=== PATIENT | male | born 1995 | race Caucasian/White ===

== ENCOUNTER 2021-10-04 12:53 | Outpatient (CLI) | payer OTHER ==
[2021-10-04 14:24] VITALS: BP 118/73
--- NOTE | 2021-10-04 14:24 | SLEEP CARE CONSULTATION ---
Information from patient questionnaire entered by Leslie Liang MA. I have reviewed and concur with the information entered by Leslie Liang MA. This document represents the service I personally performed and the decisions made by me, Alexys Aleman MD, [facility]. History of Present Illness Service Date and Time: 10/04/2021 1253 Reason for Visit: New patient (ONSET 09/2020, NO PRIORS,) Chief Complaint: reports: Snoring, Observed pauses in breathing Date of Onset: YEAR Usual bedtime: 2129 Time it takes to fall asleep: 15 MINUTES Snores at night: Yes Observed to quit breathing while asleep: Yes Sleeps alone due to snoring: No Number of times waking at night: 2-3 Reasons for waking at night: reports: Snoring, Gasping for air Toss, Turn, or Twitch while sleeping: Yes Recalls having dreams: Yes Usually gets out of bed at: 0500 Feels refreshed in the morning: No Morning headache: No Sleepy or fatigued during the day: Yes Ever fallen asleep while driving: No Takes day naps: No Dreams during day naps: No Prior sleep studies: No Additional HPI information: I had the pleasure of seeing Mr. So today regarding the possibility of him having a sleep disorder. As you know, he is a 26-year-old gentleman who complains of loud snore and observed apneas for about a year after gaining 30 lbs. The patient tells me that he normally goes to bed around 9:30 pm, and it takes him approximately 15 minutes to fall asleep. His girlfriend sleeps in the same bed. He can recall waking up on the average of 2 - 3 times during the night. Most of the time he wakes up because of his own snoring, choking, and having to gasp for air. There is a lot of tossing and turning in his sleep. He has somniloquy (sleep talking) but not somnambulism (sleep walking). Generally, he can recall having dreams. In the morning he usually gets up out of the bed around 5 a.m. not feeling refreshed nor rested. He usually does not have a morning headache. During the day he complains of feeling sleepy and fatigued. His score on [place] Sleepiness Scale is 10 out of 24. He never has fallen asleep while driving nor has had any accident due to sleepiness. He usu ally does not take naps during the day. Upon falling asleep during the day he denies having vivid dreams. He has had sleep paralysis, experienced cataplexy or symptoms of restless leg syndrome. He reports having impaired concentration during the day. - Parasomnia Symptoms Ever been unable to move upon waking from sleep: Yes Walks in sleep: No Talks in sleep: Yes Ever acted out dreams in sleep: No Ever felt weak in the knees when startled or emotional: No Bothered by creepy, crawly, restless sensations in legs: No Problems with memory or concentration: Yes Subjective Initial [place] Sleepiness Scale score: 10 (2021) Past Medical History Past Medical History: reports: Other (s/p tonsillectomy) Social History The patient's occupation is a [employer]. Patient is Single and lives in . Have you smoked in the past 12 months: No Alcohol use: Yes Alcohol amount and frequency: 1-2 X MONTHLY Caffeine use: Yes Caffeine amount and frequency: 2-3 X WEEKLY Family History Family history of sleep disordered breathing: No Family Hx Sleep Apnea: Father: Snoring, Grandparent: Sleep apnea - Treated Allergies and Home Medications Known drug allergies: Yes (AMOX, ) Drug allergies reviewed: Yes Home medication list reviewed: Yes Review of Systems Weight gain over past 5 years: 30 Cardiovascular: denies: high blood pressure, palpitations, chest pain, irregular heart rate or pulse, leg or foot swelling, have to sleep sitting up, other Respiratory: denies: shortness of breath, wheeze, sputum production, chronic cough, other Gastrointestinal: reports: heartburn Urinary: denies: incontinence, frequency, urgency, impotence, other Neurological: denies: headaches, seizure, head trauma, disorientation, speech dysfunction, gait or balance problems, fainting or unconsciousness, other Ear/Nose/Throat: reports: wisdom teeth removed Endocrine: denies: thyroid disease, history of goiter, sluggishness, too hot or cold, excessive thirst, increased appetite, increased urination, unexplained weakness, other Musculoskeletal: reports: joint pain Immunologic: denies: sneezing, rash, itching, allergies to food or environment, other Physical Exam Vital signs obtained and entered by: Jackelyn LIANG CMA [facility] Blood Pressure: 118/73 (RIGHT, PULSE 109, RESP 18) Heart Rate: 111 O2 Saturation: 97 (PAPER MASK) Height: 5 ft 8 in Weight: 216 lb Body Mass Index: 32.8 BMI Classification: Obese Neck circumference: 17 (INCH) Impression and Plan IMPRESSION: 1. Obstructive Sleep Apnea-Hypopnea Syndrome, as suggested by history of loud and irregular snoring, observed cessation of breath while asleep, frequent awakenings during the night, nocturnal choking, unrefreshed sleep, cognitive impairment, and daytime hypersomnolence. Narrow oropharynx and obesity are common predisposing factors for obstructive sleep apnea-hypopnea syndrome. I recommend proceeding to polysomnography to confirm the diagnosis and to assess severity. I informed the patient of what the sleep studies involve and after some discussion, he agreed to proceed. Plan: 1. Schedule an in-laboratory polysomnography. 2. Avoid long distance driving or when feeling sleepy. 3. Avoid alcohol, sedative and muscle relaxant around bedtime. 4. Attempt to lose weight. 5. Return for follow up after the sleep study. Follow up with Sleep Care in: 1-2 months Follow up recommended for: Weight management Plan: in-lab polysomnography Visit Type: In Office Time Spent with Patient (minutes): 15 Provider Statement: I spent 100% of the Face to Face Visit with the patient with greater than 50% spent counseling the patient and coordination of care.
== END 2021-10-04 12:54 | disposition home or self-care (01) ==
LOC: SC 12:53
PROVIDERS: ATTEND Internal Medicine Pulmonary Disease
DX: R06.83 Snoring (principal); R06.81 Apnea, not elsewhere classified; G47.8 Other sleep disorders; R41.89 Other symptoms and signs involving cognitive functions and awareness; G47.10 Hypersomnia, unspecified; E66.9 Obesity, unspecified; Z68.32 Body mass index [BMI] 32.0-32.9, adult
CPT/HCPCS: 99202; 99212

== ENCOUNTER 2021-11-06 20:23 | Outpatient (CLI) | payer OTHER | END 2021-11-06 20:24 | disposition home or self-care (01) | LOC: SC 20:23 | PROVIDERS: ATTEND Internal Medicine Pulmonary Disease | DX: G47.33 Obstructive sleep apnea (adult) (pediatric) (principal) | CPT/HCPCS: 95810 ==

== ENCOUNTER 2021-11-22 14:45 | Outpatient (CLI) | payer OTHER ==
[2021-11-22 15:16] VITALS: BP 132/70
--- NOTE | 2021-11-22 15:16 | SLEEP CARE CONSULTATION ---
Information from patient questionnaire entered by Jessie Marroquin. I have reviewed and concur with the information entered by Jessie Marroquin. This document represents the service I personally performed and the decisions made by me, Alexys Aleman MD, [facility]. History of Present Illness Service Date and Time: 11/22/2021 1445 Reason for follow up: other (FOLLOW UP POLY ) Prior sleep studies: No Type of Sleep Study: Polysomnography HPI additional information: Mr. So returned for follow up of the sleep study he had on 11/06/2021. The polysomnography showed that the patient had normal sleep efficiency. The s leep architecture was abnormal for sleep fragmentation and reduced amount of time spent in slow wave sleep (N3). Respiratory monitoring showed very severe obstructive sleep apnea-hypopnea (AHI = 60.9) associated with frequent arousals, oxyhemoglobin desaturation and moderate hypoxia (bridget oxygen saturation of 78 %). The respiratory events occurred mainly during supine sleep (supine AHI = 129.8; non-supine = 45.57). Snore was light to loud in intensity. There was no significant periodic leg movement of sleep. Cardiac rhythm was normal sinus rhy thm without significant arrhythmia. No abnormal behavior (parasomnia) observed during the night. The patient was informed of these findings. I explained to him the pathophysiology behind obstructive sleep apnea. We then spent quite a bit of time discussing different treatment options. For mild obstructive sleep apnea, surgery and oral appliance are alternatives to nasal CPAP therapy but in mod erate or severe cases, nasal CPAP is the most effective and reliable treatment. Weight loss in an obese individual is strongly recommended. After some discussion, he opted to go with the nasal CPAP therapy. I explained to him how CPAP machine works and what to expect when using the machine. He is encouraged to use CPAP every night especially in the first 2 to 3 nights in order to get used to it. He should call his CPAP supplier or me to discuss any mechanical problem that may occur. If he snores or feels like he is not getting enough air from the machine, he should notify me and I will increase the pressure. Sleep Study - Results Prior sleep studies: No Subjective Initial [place] Sleepiness Scale score: 10 (2021) Allergies and Home Medications Known drug allergies: Yes (amox) Drug allergies reviewed: Yes Home medication list reviewed: Yes Review of Systems Review of systems same as previous: Yes Physical Exam Vital signs obtained and entered by: Emilia MARROQUIN MA Blood Pressure: 132/70 (manual ) Cuff size: regular Heart Rate: 102 O2 Saturation: 99 Height: 5 ft 8 in Weight: 462 lb 15.532 oz Body Mass Index: 70.4 BMI Classification: Morbidly Obese Impression and Plan IMPRESSION: 1. Obstructive Sleep Apnea-Hypopnea Syndrome, very severe, ass ociated with moderate hypoxemia and sleep fragmentation. Obviously this is the cause of the patients symptoms of unrefreshed sleep, and excessive daytime sleepiness. As mentioned above, the patient will be started on an autoCPAP set between 5 and 15 cmH2O. Depending on his response and compliance he may be brought back for an overnight CPAP titration study. PLAN: 1. Prescription made for an autoCPAP, heated humidifier, and related supplies. 2. Attempt to lose weight and avoid alcohol consumption near bedtime. 3. The patient is again cautioned about driving until his sleepiness completely resolves on the CPAP therapy. 4. Return for follow up after one month of using the CPAP. Prescriptions: Auto CPAP Follow up with Sleep Care in: 1-2 months Visit Type: In Office Time Spent with Patient (minutes): 15 Provider Statement: I spent 100% of the Face to Face Visit with the patient with greater than 50% spent counseling the patient and coordination of care.
== END 2021-11-22 14:46 | disposition home or self-care (01) ==
LOC: SC 14:45
PROVIDERS: ATTEND Internal Medicine Pulmonary Disease
DX: G47.33 Obstructive sleep apnea (adult) (pediatric) (principal); E66.01 Morbid (severe) obesity due to excess calories; Z68.45 Body mass index [BMI] 70 or greater, adult
CPT/HCPCS: 99212

== ENCOUNTER 2022-10-14 13:38 | Outpatient (CLI) | payer OTHER ==
[~2022-10-14 13:38] MED LIST: GADOBUTROL 10 MMOL/10 ML VIAL ONE
[2022-10-14] MEDS ORDERED: GADOBUTROL 10 MMOL/10 ML VIAL IVP ONE (14:36)
--- NOTE | 2022-10-17 13:45 | MRI Report ---
PROCEDURE: BRAIN W/WO INDICATIONS: TREMOR CONTRAST: GADAVIST 9.8ML TECHNIQUE: Noncontrast axial T1 spin echo, axial T2 fast spin echo, sagittal and axial FLAIR, coronal T2 fast sp in echo, axial gradient echo, axial diffusion and ADC through the brain. After the administration of contrast, axial and coronal T1 spin echo with fat saturation through the brain. COMPARISON: None. FINDINGS: Image quality: Excellent. CSF spaces: Basal cisterns are patent. No extra-axial fluid collections. Ventricles are normal in size and shape. Brain: No midline shift. No intracranial bleeds or masses. No abnormal intracranial enhancement. There is cerebral volume loss for age. There is periventricular white matter chronic small vessel is chemic change. The brainstem appears normal. Diffusion-weighted images demonstrate no acute ischemi c insults. No chronic ischemic insults. Normal intravascular flow voids are present. Skull and face: Calvarial marrow is normal in signal. Orbits appear normal. Sinuses: Left maxillary sinus mucous retention cyst. Sinuses and mastoids otherwise appear clear. IMPRESSION: Unremarkable brain MRI with and without contrast. No evidence of acute intracranial proc ess. Reviewed by: Marvin Pedroza MD on 10/17/2022 8:05 AM PDT Approved by: Marvin Pedroza MD on 10/17/2022 8:05 AM PDT Station ID: [id number]
== END 2022-10-14 13:39 | disposition home or self-care (01) ==
LOC: DI 13:38
PROVIDERS: ATTEND Student in an Organized Health Care Education/Training Program
DX: R25.1 Tremor, unspecified (principal)
CPT/HCPCS: 70553; A9585